=== PATIENT | male | born 1975 | race Two or more races ===

== ENCOUNTER 2021-01-06 10:31 | Emergency (ER) | payer OTHER ==
[~2021-01-06] VITALS: Ht 170.2 cm; Wt 72.6 kg
--- NOTE | 2021-01-06 10:32 | NUR ---
AAOX3, CAME TO ER C/O ANXIETY, DENIES SI/HI, PT STATES THAT HE WAS CONCERNED THAT HE TOOK ALCOHOL + PSYCH MEDS AT THE SAME TIME. RR IS EVEN AND UNLABORED WITH NAD NOTED. SKIN IS WARM AND DRY. AWAITING MD FOR EVAL.
[2021-01-06] MEDS ORDERED: LORAZEPAM 1 MG TABLET ONE (10:56)
[2021-01-06] MEDS ORDERED: ONDANSETRON 4 MG TAB.RAPDIS ONE (10:57)
[2021-01-06] MEDS ORDERED: ONDANSETRON HCL 4 MG/5 ML SOLUTION PO ONE (11:00)
[2021-01-06] MEDS ORDERED: LORAZEPAM 1 MG TABLET PO ONE ×2 (11:00→13:00)
[2021-01-06] MEDS ORDERED: IV NS 0.9% 1,000 ML IV ONE (12:00)
[2021-01-06] MEDS ORDERED: LORAZEPAM 0.5 MG TABLET ONE (12:59)
--- NOTE | 2021-01-06 13:08 | NUR ---
SEEN AND EVALUATED BY ED PROVIDER. PT STATES FEELING MUCH BETTER. AGREED TO BE DISCHARGED. IV LINE DISCONTINUED. DISCHARGE HOME IN STABLE CONDITION.
[2021-01-06 13:09] VITALS: BP 109/85
== END 2021-01-06 13:09 | disposition home or self-care (01) ==
LOC: ER 10:31
DX: F10.980 Alcohol use, unspecified with alcohol-induced anxiety disorder (principal); G47.00 Insomnia, unspecified; Y90.9 Presence of alcohol in blood, level not specified
CPT/HCPCS: 96360; 99284; J7030; Q0162

== ENCOUNTER 2021-02-04 10:31 | Emergency (ER) | payer OTHER ==
[~2021-02-04] VITALS: Ht 170.2 cm; Wt 72.6 kg
[2021-02-04 10:46] VITALS: BP 131/80
[2021-02-04] MEDS ORDERED: LORAZEPAM 1 MG TABLET ONE ×2 (11:26→12:34)
[2021-02-04] MEDS ORDERED: LORAZEPAM 1 MG TABLET PO ONE ×2 (11:30→12:30)
--- NOTE | 2021-02-04 12:40 | NUR ---
PATIENT A/OX4, BREATHING EVEN AND UNLABORED, AMBULATORY WITH STEADY GAIT. NO DISTRESS NOTED. Patient discharged to home in stable condition. Written and verbal after care instructions given. Patient verbalizes understanding of instruction. Instructed not to drive.
== END 2021-02-04 12:42 | disposition home or self-care (01) ==
LOC: ER 10:34
DX: F41.1 Generalized anxiety disorder (principal); G47.00 Insomnia, unspecified; F10.10 Alcohol abuse, uncomplicated; Y90.9 Presence of alcohol in blood, level not specified; Z60.2 Problems related to living alone